=== PATIENT | female | born 1960 | race Hispanic/Latino ===

== ENCOUNTER → 2018-09-08 | Outpatient (CLI) | payer BC ==
[~2018-09-08] MED LIST: ESTR50GE TD
== END | disposition home or self-care (01) ==
LOC: RAH 12:46
PROVIDERS: ATTEND Family Medicine
DX: R09.89 Other specified symptoms and signs involving the circulatory and respiratory systems (principal)
CPT/HCPCS: 93880

== ENCOUNTER → 2019-12-27 | Outpatient (CLI) | payer BC | END | disposition home or self-care (01) | LOC: RAH 07:54 | PROVIDERS: ATTEND Family Medicine | DX: Z12.31 Encounter for screening mammogram for malignant neoplasm of breast (principal); K76.0 Fatty (change of) liver, not elsewhere classified; K82.4 Cholesterolosis of gallbladder | CPT/HCPCS: 76700; 77067 ==

== ENCOUNTER → 2020-01-11 | Outpatient (CLI) | payer BC | END | disposition home or self-care (01) | LOC: RAH 13:23 | PROVIDERS: ATTEND Family Medicine | DX: N60.01 Solitary cyst of right breast (principal); R07.89 Other chest pain; R92.8 Other abnormal and inconclusive findings on diagnostic imaging of breast | CPT/HCPCS: 71046; 76641; 77065 ==

== ENCOUNTER → 2020-07-17 | Outpatient (CLI) | payer BC | END | disposition home or self-care (01) | LOC: RAH 09:05 | PROVIDERS: ATTEND Family Medicine | DX: N60.01 Solitary cyst of right breast (principal) | CPT/HCPCS: 76641 ==

== ENCOUNTER → 2020-07-25 | Outpatient (CLI) | payer BC ==
[~2020-07-25] MED LIST changes: +IOHEXOL-350 75 ML VIAL IV ONE
== END | disposition home or self-care (01) ==
LOC: RAH 08:59
PROVIDERS: ATTEND Family Medicine
DX: K52.9 Noninfective gastroenteritis and colitis, unspecified (principal); M47.819 Spondylosis without myelopathy or radiculopathy, site unspecified
CPT/HCPCS: 74178; Q9967

== ENCOUNTER → 2020-11-06 | Outpatient (CLI) | payer BC | END | disposition home or self-care (01) | LOC: RAH 09:01 | PROVIDERS: ATTEND Family Medicine | DX: K63.89 Other specified diseases of intestine (principal); K50.00 Crohn's disease of small intestine without complications; K52.9 Noninfective gastroenteritis and colitis, unspecified; M47.815 Spondylosis without myelopathy or radiculopathy, thoracolumbar region; R19.00 Intra-abdominal and pelvic swelling, mass and lump, unspecified site; Z90.710 Acquired absence of both cervix and uterus | CPT/HCPCS: 74178; Q9967 ==

== ENCOUNTER 2025-07-06 13:35 | Emergency (ER) | payer BC ==
[~2025-07-06] VITALS: Ht 165.1 cm; Wt 68.0 kg
[~2025-07-06 13:35] MED LIST changes: -IOHEXOL-350 75 ML VIAL IV ONE
--- NOTE | 2025-07-06 14:24 | ERN ---
General Chief Complaint: Laceration/Avulsion Stated Complaint: LACERATION TO LEFT FINGERS Time Seen by MD: 13:37 History of Present Illness Initial Comments 65-year-old female otherwise healthy presents for skin avulsion to the distal tip of the left middle finger. She was using a grater and grated the of the tip off. She came in with a bandage on, she mostly came in because the bleeding would not stop. She did not take a blood thinner. No other injuries. Neurovascularly intact. 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 HEAD/FACE: No signs of trauma. EENT: No eye pain, no blurred vision, no tearing, no double vision, no ear pain, no ear discharge, no nose pain, no nasal congestion, no throat pain, no throat swelling, no mouth pain. RESPIRATORY: No cough, no orthopnea, no SOB, no stridor, no wheezing. CARDIOVASCULAR: No chest pain, no edema, no palpitations, no syncope. GASTROINTESTINAL/ABDOMINAL: No abdominal pain, no constipation, no diarrhea, no nausea, no vomiting. GENITOURINARY: No abnormal discharge, no dysuria, no frequent urination, no hematuria. No complaints of pain in the genitals. MUSCULOSKELETAL: No back pain, no gout, no joint pain, no joint swelling, no muscle pain, no muscle stiffness, no neck pain. INTEGUMENTARY: No change in color, no change in hair/nails, no dryness, no lesion, no lumps, no rash. NEUROLOGICAL/PSYCH: No anxiety, not depressed, no emotional problem, no headache, no numbness, no pre-existing deficit, no history of seizures, no tremors, no weakness. HEMATOLOGIC/LYMPHATIC: Not anemic, no history of blood clots, no apparent bleeding, no bruising, glands not swollen. All Systems Negative, Except as Noted. Physical Exam Physical Exam Dictation VITAL SIGNS: Reviewed. GENERAL APPEARANCE: Alert, oriented x3, no acute distress HEAD AND FACE: Non-traumatic. EYES: PERRL, pink conjunctivas, eyelid no trauma, anterior chamber clear. EARS: Pinnas intact and no signs of trauma or erythema. Ear canals clear and no discharge. TMs no erythema. NOSE: No discharge, no bleeding. OROPHARYNX: Mouth normal, teeth no caries, tongue pink. Pharynx clear, no eryt max. Tonsils no exudates, no abscesses noted. Mucous membrane moist. NECK: Supple, non-tender, no thyromegaly, no masses, no JVD, no bruits. BREAST: Deferred. CHEST: No tenderness, no crepitus, no paradoxical movement, no retractions. LUNGS: Clear, well-ventilated, symmetric, no rales, no wheezing, no rhonchi, no stridor, good breath sounds bilaterally. HEART: Regular rate, regular rhythm, no murmur, no gallops. VASCULAR: No peripheral edema. ABDOMEN: Soft, positive bowel sounds, nondistended, no guarding, nontender, no rebound, no masses no hepatomegaly, no splenomegaly, no Lew's sign, no hernias. RECTAL: Deferred. GENITAL: Deferred. NEUROLOGICAL: Normal speech, gross motor function intact, gross sensory function intact. MUSCULOSKELETAL: Neck nontender, full range of motion, back nontender, full range of motion. EXTREMITIES: Nontender, full range of motion. SKIN: Color pink, dry, no turgor, no rash, no lacerations, no abrasions, no contusions. LYMPHATICS: Deferred. MDM CC: Left middle finger distal skin avulsion Historian: Patient Comorbidities: None No limitations Differential includes skin avulsion Vitals are stable No blood thinners No complications Neurovascularly intact I evaluated the wound, there was no laceration or ability to repair, we will need to heal by secondary intention. She is placed in the tourniquet with a direct pressure for about 10 minutes the bleeding stopped. Wrapped in wet-to-dry. We will DC. ED Course Vital Signs Date Time Temp Pulse Resp B/P (MAP) Pulse Ox O2 Delivery O2 Flow Rate FiO2 07/06/25 14:29 98.1 85 16 145/52 98 Room Air* 0 21 07/06/25 13:36 98.1 86 16 146/54 99 Room Air DX & DISP Disposition: Discharge Departure Impression: Primary Impression: Laceration of left middle finger Condition: Stable Assign Patient to: The laceration on your finger, or skin avulsion, we will need to heal by secondary intention. I recommend keeping the wound covered with a wet to dry dressing over the next few days. Once there is a layer of healing tissue, you can use a simple Band- Aid. Keep the wound clean with soap and water. Monitor for any signs of infection. If bleeding continues, elevate your finger to above the level of your heart, and hold direct pressure. If you do this for 15 or so minutes, the bleeding we will usually stop on its own. Please return to the emergency department as needed. Referrals: ALANA DE LA TORRE MD (PCP) CHACE VILLALBA DO Jul 06, 2025 14:24
[2025-07-06 14:29] VITALS: BP 145/52; PULSE 85; RESP 16; TEMP 98.1; O2SAT 98
--- NOTE | 2025-07-06 14:34 | NUR ---
LEFT HAND 3RD AND 4TH DIGIT CLEAND AND BANDAGED WITH BANDAID TO 4TH DIGIT AND PETROLIUM AMBROCIO AND 4X4 TO COVER 3RD DIGIT
== END 2025-07-06 14:47 | disposition home or self-care (01) ==
LOC: EDH 13:35
DX: S61.213A Laceration without foreign body of left middle finger without damage to nail, initial encounter (principal); Z90.710 Acquired absence of both cervix and uterus; I10 Essential (primary) hypertension; Z90.89 Acquired absence of other organs; W26.8XXA Contact with other sharp object(s), not elsewhere classified, initial encounter; Y93.89 Activity, other specified; Y92.89 Other specified places as the place of occurrence of the external cause; Y99.8 Other external cause status
CPT/HCPCS: 99281

== ENCOUNTER → 2025-09-26 | Outpatient (CLI) | payer BC ==
[2025-09-26 14:44] LABS: CREATININE 0.7 mg/dL (0.5-1.0); GLOMERULAR FILTR. RATE CALC 97.0 mL/min (>90); UREA NITROGEN, BLOOD 21.0 mg/dL (7-18)
== END | disposition home or self-care (01) ==
LOC: LAB 12:32
PROVIDERS: ATTEND Internal Medicine Gastroenterology
DX: R10.9 Unspecified abdominal pain (principal)
CPT/HCPCS: 36415; 82565; 84520

== ENCOUNTER → 2025-10-01 | Outpatient (CLI) | payer BC ==
[~2025-10-01] MED LIST changes: +IOHEXOL 350 MG/ML 100ML INFUS..BTL IV ONE
--- NOTE | 2025-10-02 02:46 | HMCIMG ---
EXAM: CT ABDOMEN AND PELVIS WITH INTRAVENOUS CONTRAST CLINICAL HISTORY: Unspecified abdominal pain TECHNIQUE: Axial CT images of the abdomen and pelvis were obtained after IV contrast administration. 7 minutes delayed images have also been acquired. 95 mL of intravenous iodinated contrast was administered. Total exam DLP is 930. Multiplanar reconstructions. The protocol utilizes one or more of the following dose reduction techniques: automated exposure control, adjustment of mA and/or kV according to patient size, and/or use of iterative reconstruction technique. CONTRAST: IV Contrast: 95 mL intravenous iodinated contrast. COMPARISON: None. FINDINGS: LOWER CHEST: There is mild cardiomegaly. No pericardial effusion observed. There is bibasilar dependent atelectasis. LIVER: The liver is normal. GALLBLADDER AND BILIARY TREE: The gallbladder is unremarkable. No intra- or extrahepatic biliary ductal dilation. PANCREAS: No focal cystic or solid mass. SPLEEN: The spleen is normal. ADRENAL GLANDS: The both adrenals are unremarkable. KIDNEYS AND URETERS: Normal renal size and position. There is a right renal cyst measuring 7 mm in the interpolar region of the right kidney anteriorly, series 6, image 34/102. Per consensus, no follow-up is needed for simple Bosniak type 1 renal cysts, unless the patient has a malignancy history or risk factors. Delayed phase images show normal contrast excretion through the bilateral renal pelvicalyceal system without hydronephrosis. No renal or ureteral calculi. URINARY BLADDER: Incompletely distended, otherwise grossly unremarkable. REPRODUCTIVE ORGANS: The uterus is surgically absent. The adnexae are unremarkable. No pelvic masses or pelvic ascites. BOWEL: There are a few fluid filled small bowel loops displaying circumferential, smooth bowel wall thickening in the upper abdomen, without significant dilatation with maximum wall thickness 7 mm. There is fatty metaplasia of the ileocecal valve cusps. The appendix is unremarkable, series 2, image 66/102. LYMPH NODES: Not enlarged mesenteric or retroperitoneal lymph nodes. PERITONEUM: No ascites or free air. No other fluid collection. VESSELS: The abdominal aorta demonstrates atheromatous calcification without aneurysm or dissection. ABDOMINAL WALL: There is a tiny umbilical hernia containing fat with the defect measuring 0.8 cm. BONES: No lytic or blastic abnormality observed. There is mild scoliosis of the lumbar spine with convexity toward the right. There are degenerative changes in the lumbar spine. The sacrum residual given. IMPRESSION: 1. Thickened small bowel loops in the upper abdomen which may represent acute enteritis. 2. Tiny umbilical hernia containing fat with a 0.8 cm defect. 3. Bosniak class I right renal cyst. /Cameron
== END | disposition home or self-care (01) ==
LOC: RAH 08:49
PROVIDERS: ATTEND Internal Medicine Gastroenterology
DX: N28.1 Cyst of kidney, acquired (principal); K42.9 Umbilical hernia without obstruction or gangrene; K31.A0 Gastric intestinal metaplasia, unspecified; I51.7 Cardiomegaly; J98.11 Atelectasis; M47.816 Spondylosis without myelopathy or radiculopathy, lumbar region; M41.86 Other forms of scoliosis, lumbar region; R10.9 Unspecified abdominal pain
CPT/HCPCS: 74177; Q9967